=== PATIENT | male | born 1945 | race Hispanic/Latino ===

== ENCOUNTER 2023-05-17 08:08 | Emergency (ER) | payer MEDICARE ==
[~2023-05-17] VITALS: Ht 182.9 cm; Wt 106.6 kg
[~2023-05-17 08:08] MED LIST: LEVO-170 PO; LEVO-70 PO; TERA5CAP4 PO
[2023-05-17 08:17] VITALS: BP 141/73; PULSE 84; RESP 14; O2SAT 95
[2023-05-17 08:54] LABS: BASOPHILS # (AUTO) 0.07 K/uL (0.00-0.20); BASOPHILS % (AUTO) 0.5 % (0.0-5.0); EOSINOPHILS # (AUTO) 0.41 K/uL (0.00-0.70); EOSINOPHILS % (AUTO) 2.7 % (0.0-8.0); HEMATOCRIT 45.4 % (42-54); IMMATURE GRANULOCYTE ABSOLUTE 0.08 K/uL (0-1); LYMPHOCYTES # (AUTO) 1.9 K/uL (1.0-4.8); LYMPHOCYTES % (AUTO) 12.3 % (21.0-51.0); MEAN CORPUSCULAR HEMOGLOBIN 34.8 pg (27.0-33.0); MEAN CORPUSCULAR HGB CONC 33.9 g/dL (32.0-36.0); MEAN CORPUSCULAR VOLUME 102.5 fL (79-99); MONOCYTES # (AUTO) 1.1 K/uL (0.1-1.0); MONOCYTES % (AUTO) 7.5 % (3.0-13.0); NEUTROPHILS # (AUTO) 11.6 K/uL (1.8-7.7); NEUTROPHILS % (AUTO) 76.5 % (40.0-77.0); PLATELET COUNT (AUTO) 208 K/uL (130-400); RED BLOOD CELL COUNT(AUTO) 4.43 MIL/uL (4.50-6.20); RED CELL DISTRIBUTION WIDTH 11.2 % (11.0-15.5); WHITE BLOOD COUNT (AUTO) 15.2 K/uL (4.8-10.8)
[2023-05-17 09:08] LABS: ALBUMIN 3.8 g/dL (3.5-5.0); BILIRUBIN,TOTAL 0.7 mg/dL (0.2-1.0); POTASSIUM 3.7 mmol/L (3.5-5.1); TOTAL PROTEIN, SERUM 7.5 g/dL (6.0-8.3)
[2023-05-17] MEDS ORDERED: SENN1TAB72 PO (10:29)
== END 2023-05-17 11:02 | disposition home or self-care (01) ==
LOC: EDH 08:08
DX: K59.00 Constipation, unspecified (principal); E03.9 Hypothyroidism, unspecified; Z79.890 Hormone replacement therapy
CPT/HCPCS: 36415; 74018; 80053; 85025

== ENCOUNTER 2023-10-24 07:27 | Emergency (ER) | payer MEDICARE ==
[~2023-10-24] VITALS: Ht 175.3 cm; Wt 99.8 kg
[~2023-10-24 07:27] MED LIST changes: +SENN-7 PO
[2023-10-24 08:04] LABS: BASOPHILS # (AUTO) 0.03 K/uL (0.00-0.20); BASOPHILS % (AUTO) 0.4 % (0.0-5.0); EOSINOPHILS # (AUTO) 0.15 K/uL (0.00-0.70); EOSINOPHILS % (AUTO) 2.1 % (0.0-8.0); HEMATOCRIT 36.6 % (42-54); IMMATURE GRANULOCYTE ABSOLUTE 0.03 K/uL (0-1); LYMPHOCYTES % (AUTO) 27.1 % (21.0-51.0); MEAN CORPUSCULAR HEMOGLOBIN 36.6 pg (27.0-33.0); MEAN CORPUSCULAR HGB CONC 35.2 g/dL (32.0-36.0); MONOCYTES # (AUTO) 0.6 K/uL (0.1-1.0); MONOCYTES % (AUTO) 8.1 % (3.0-13.0); NEUTROPHILS # (AUTO) 4.5 K/uL (1.8-7.7); NEUTROPHILS % (AUTO) 61.9 % (40.0-77.0); PLATELET COUNT (AUTO) 173 K/uL (130-400); RED BLOOD CELL COUNT(AUTO) 3.52 MIL/uL (4.50-6.20); RED CELL DISTRIBUTION WIDTH 15.6 % (11.0-15.5); WHITE BLOOD COUNT (AUTO) 7.3 K/uL (4.8-10.8)
[2023-10-24 08:21] LABS: POTASSIUM 4.2 mmol/L (3.5-5.1)
[2023-10-24 08:25] VITALS: PULSE 72; RESP 20
[2023-10-24 08:28] LABS: ALBUMIN 3.9 g/dL (3.5-5.0); BILIRUBIN,TOTAL 0.8 mg/dL (0.2-1.0); TOTAL PROTEIN, SERUM 7.3 g/dL (6.0-8.3)
[2023-10-24] MEDS: IpraTROPium/alBUTERol SULFATE 3 ML SOLUTION IH ONE (08:29)
[2023-10-24] MEDS ORDERED: IpraTROPium/alBUTERol SULFATE 3 ML SOLUTION IH ONE (09:00)
[2023-10-24] MEDS: SOLU-MEDROL 40MG VIAL IVP ONE (09:02)
[2023-10-24] MEDS: 0.9% NACL 500ML IV.SOLN 500 ML IV ONE (09:03)
[2023-10-24] MEDS ORDERED: PRED20TA3 PO (09:50)
[2023-10-24] MEDS ORDERED: AZIT250T9 PO (09:50)
[2023-10-24 10:05] VITALS: BP 106/67; PULSE 67; RESP 20; O2SAT 99
== END 2023-10-24 10:04 | disposition home or self-care (01) ==
LOC: EDH 07:27
DX: U07.1 COVID-19 (principal); B34.9 Viral infection, unspecified; J20.9 Acute bronchitis, unspecified; E03.9 Hypothyroidism, unspecified; E11.9 Type 2 diabetes mellitus without complications; J45.909 Unspecified asthma, uncomplicated; Z79.899 Other long term (current) drug therapy
CPT/HCPCS: 99285; 96374; 71045; 84484; 80053; 85025; 36415; 93005; 94640; J7040; J2919